=== PATIENT | female | born 1970 | race Caucasian/White ===

== ENCOUNTER 2021-06-16 09:16 | Emergency (ER) | payer SELFPAY ==
[~2021-06-16] VITALS: Ht 152.4 cm; Wt 63.0 kg
[2021-06-16] MEDS ORDERED: GLYBURID MCR1.5 MG PO (09:52)
[2021-06-16] MEDS ORDERED: LIPITOR10 M1 PO (09:52)
[2021-06-16] MEDS ORDERED: BENICAR20 MG PO (09:53)
[2021-06-16] MEDS ORDERED: MEDDOSEPAK PO (09:53)
[2021-06-16] MEDS ORDERED: AMOXICILLIN500 MG PO (09:54)
[2021-06-16] MEDS ORDERED: FLONASE SE27.5 MCG/S (09:54)
[2021-06-16] MEDS ORDERED: FLOXIN OTIC0.3 % OT (09:55)
[2021-06-16] MEDS ORDERED: CIPROFLOXACN500 MG PO ×2 (10:28→14:45)
[2021-06-16 10:46] VITALS: BP 145/87
== END 2021-06-16 11:02 | disposition home or self-care (01) | DRG 156 ==
LOC: ED 09:16
DX: H60.91 Unspecified otitis externa, right ear (principal); I10 Essential (primary) hypertension